=== PATIENT | female | born 1990 | race American Indian/Alaskan Native ===

== ENCOUNTER 2018-07-15 09:39 | Inpatient (IN) | payer SELFPAY ==
--- NOTE | 2018-07-15 12:23 | Emergency Department Report ---
ED General Adult HPI - General Chief complaint: Skin/Abscess/Foreign Body Stated complaint: POSSIBLE INFECTIONS Time Seen by Provider: 07/15/18 12:08 Source: patient, EMS Mode of arrival: Ambulatory Limitations: No Limitations - History of Present Illness Initial comments: This is a 27-year-old female that states that she had drainage of an abscess of her left breast four months ago in [facility]. She stated that she noted some green drainage from the same I&D site last night. She denies fever or chills. She states that she has had some weight loss but she believes this is due to her hypothyroidism. Patient initially told me that she was taking her thyroid medicine. Later she told the nurse she was never prescribed thyroid medicine. Again when I asked her for clarification she just admitted that she is frankly noncompliant with previously prescribed thyroid medication. -: hour(s) (related to drainage) - Related Data Allergies Allergy/AdvReac Type Severity Reaction Status Date / Time Penicillins Allergy Unknown Verified 07/15/18 10:06 ED Review of Systems ROS: Stated complaint: POSSIBLE INFECTIONS Other details as noted in HPI Constitutional: denies: chills, fever Eyes: denies: eye pain, eye discharge, vision change ENT: denies: ear pain, throat pain Respiratory: denies: cough, shortness of breath, wheezing Cardiovascular: denies: chest pain, palpitations Endocrine: see HPI, unexplained weight loss Gastrointestinal: denies: abdominal pain, nausea, diarrhea Genitourinary: denies: urgency, dysuria, discharge Musculoskeletal: denies: back pain, joint swelling, arthralgia Skin: as per HPI, lesions. denies: rash Neurological: denies: headache, weakness, paresthesias Psychiatric: denies: anxiety, depression Hematological/Lymphatic: denies: easy bleeding, easy bruising ED Past Medical Hx - Past Medical History Previous Medical History?: Yes Hx Hypertension: Yes Additional medical history: hyperthyroidism - Surgical History Past Surgical History?: Yes - Social History Smoking Status: Current Every Day Smoker Substance Use Type: Marijuana ED Physical Exam - General Limitations: No Limitations General appearance: alert, in no apparent distress - Head Head exam: Present: atraumatic, normocephalic - Eye Eye exam: Present: normal appearance, periorbital swelling - ENT ENT exam: Present: mucous membranes moist - Neck Neck exam: Present: normal inspection. Absent: tenderness, meningismus - Respiratory Respiratory exam: Present: normal lung sounds bilaterally. Absent: respiratory distress - Cardiovascular Cardiovascular Exam: Present: normal rhythm, tachycardia. Absent: systolic murmur, diastolic murmur, rubs, gallop - GI/Abdominal GI/Abdominal exam: Present: soft, normal bowel sounds. Absent: distended, tenderness, guarding, rebound, rigid - Extremities Exam Extremities exam: Present: normal inspection - Back Exam Back exam: Present: normal inspection - Neurological Exam Neurological exam: Present: alert, oriented X3, CN II-XII intact. Absent: motor sensory deficit - Psychiatric Psychiatric exam: Present: normal affect, normal mood - Skin Skin exam: Present: warm, dry, intact, normal color. Absent: rash - Other Other exam information: Left breast has a periareolar ulcer. There is some mass effect. There is some erythema. I do not note any drainage or purulence. ED Course Vital Signs 07/15/18 07/15/18 07/15/18 09:39 11:03 11:30 Temperature 98.5 F Pulse Rate 116 H Respiratory 18 Rate Blood Pressure 136/98 138/99 138/79 O2 Sat by Pulse 100 98 100 Oximetry 07/15/18 07/15/18 07/15/18 12:00 12:30 13:00 Temperature Pulse Rate Respiratory Rate Blood Pressure 144/72 138/79 132/76 O2 Sat by Pulse 99 99 100 Oximetry 07/15/18 07/15/18 07/15/18 13:30 14:00 14:30 Temperature Pulse Rate Respiratory Rate Blood Pressure 132/76 132/76 132/79 O2 Sat by Pulse 100 96 99 Oximetry 07/15/18 14:41 Temperature 98.2 F Pulse Rate Respiratory Rate Blood Pressure O2 Sat by Pulse Oximetry - Reevaluation(s) Reevaluation #1: She is noted to be significantly tachycardic. She was given PTU, Lugol solution and started on IV propranolol. She is substantially thyrotoxic with a T4 off the scale and a TSH essentially 0. She is referred to Dr. Quiroz for admission to the hospitalist service in stable condition. I also concerned that breast cancer needs to be ruled out because she has chronic breast tract/ulcer/mass. 07/15/18 16:00 ED Medical Decision Making - Lab Data Result diagrams: 07/15/18 12:48 07/15/18 12:48 Critical Care Time: Yes Critical care time in (mins) excluding proc time.: 60 Critical care attestation.: If time is entered above; I have spent that time in minutes in the direct care of this critically ill patient, excluding procedure time. ED Disposition Clinical Impression: Breast mass, Breast infection in female Thyrotoxicosis Qualifiers: Thyrotoxicosis type: unspecified thyrotoxicosis type Thyrotoxic crisis or storm presence: with thyrotoxic crisis or storm Qualified Code(s): E05.91 - Thyrotoxicosis, unspecified with thyrotoxic crisis or storm Disposition: 09 OP ADMIT IP TO THIS HOSP Is pt being admited?: Yes Does the pt Need Aspirin: Yes Condition: Stable Referrals: PRIMARY CARE,MD [Primary Care Provider] - 3-5 Days Time of Disposition: 16:02
[2018-07-15] MEDS ORDERED: NACL 0.9% 1000 ML 1,000 ML IV ONE (12:36)
[2018-07-15 13:12] LABS: Hematocrit 32.1 % (30.3-42.9); Hemoglobin 10.1 gm/dl (10.1-14.3); Mean Corpuscular HGB Conc 32 % (30-34); Red Blood Count 5.33 M/mm3 (3.65-5.03); Red Cell Distribution Width 17.2 % (13.2-15.2)
[2018-07-15 13:18] LABS: Mean Corpuscular Volume 60 fl (79-97)
[2018-07-15 13:23] LABS: INR 1.02 (0.87-1.13); Partial Thromboplastin Time 30.9 Sec. (24.2-36.6)
[2018-07-15 13:38] LABS: Creatine Kinase MB 2.8 ng/mL (0.0-4.0)
[2018-07-15 13:41] LABS: Alanine Aminotransferase 28 units/L (7-56); Albumin 3.5 g/dL (3.9-5); BUN/Creatinine Ratio 70; Blood Urea Nitrogen 14 mg/dL (7-17); Calcium 8.7 mg/dL (8.4-10.2); Hemolysis Index 4
[2018-07-15 14:00] LABS: Bilirubin,Direct < 0.2 mg/dL (0-0.2)
[2018-07-15] MEDS ORDERED: PROPYLTHIOURACIL PO ONE (14:34)
[2018-07-15] MEDS ORDERED: INDERAL IV ONE (14:36)
[2018-07-15 14:41] LABS: Free T4 (Free Thyroxine) > 7.77 ng/dL (0.76-1.46)
--- NOTE | 2018-07-15 14:46 | History and Physical Report ---
History of Present Illness Chief complaint: green stuff came out of my left breast History of present illness: 27 YO Female with Hyperthyroidism, HTN, Nicotine Dependence, Medication Noncompliance presents to ED for evaluation. Pt states that she experienced green drainage from her left breast overnight. Pt also acknowledges medication noncompliance. Pt acknowledges undetermined amount of weight loss over the past 2 months. EMS notified and patient subsequently transported to [facility] for further care and evaluation. Pt seen and evaluated in ED and found to have Thyrotoxicosis, and left Breast Cellulitis. Pt admitted to medical floor. Pt denies fever, chills, CP, Palpitations, NVD, Trauma, BRBPR, productive cough, or recent ill contacts. Past History Past Medical History: hyperthyroidism, hypertension Past Surgical History: Other (Breast I&D, ) Social history: single, smoking Family history: no significant family history (reviewed) Medications and Allergies Allergies Allergy/AdvReac Type Severity Reaction Status Date / Time Penicillins Allergy Unknown Verified 07/15/18 10:06 Active Meds: Active Medications Sodium Chloride (Nacl 0.9% 1000 Ml) 1,000 mls @ 125 mls/hr IV ONCE ONE Stop: 07/15/18 20:35 Last Admin: 07/15/18 13:08 Dose: 125 mls/hr Documented by: Iodine/Potassium Iodide (Lugol's Solution 5%) 1 ml PO ONCE ONE Stop: 07/15/18 17:01 Review of Systems Constitutional: weight loss, no weight gain, no fever, no chills Ears, nose, mouth and throat: no ear pain, no ear discharge, no tinnitis, no decreased hearing, no nose pain Breasts: other (Left breast drainage), no change in shape, no swelling, no mass Cardiovascular: no chest pain, no orthopnea, no palpitations, no rapid/irregular heart beat, no edema Respiratory: no cough, no cough with sputum, no excessive sputum, no hemoptysis Gastrointestinal: no nausea, no vomiting, no diarrhea, no constipation Genitourinary Female: no pelvic pain, no flank pain, no menorrhagia, no dysuria, no urinary frequency, no urgency Rectal: no pain, no incontinence, no bleeding Musculoskeletal: no neck stiffness, no neck pain, no shooting arm pain, no arm numbness/tingling, no low back pain Integumentary: no rash, no pruritis, no redness, no sores, no jaundice Neurological: no paralysis, no weakness, no parathesias, no numbness, no tingling, no seizures, no syncope, no tremors Psychiatric: no anxiety, no change in sleep habits, no sleep disturbances, no insomnia, no hypersomnia, no change in appetite Endocrine: no cold intolerance, no heat intolerance, no excessive thirst Hematologic/Lymphatic: no easy bruising, no easy bleeding, no lymphadenopathy, no lymphedema Allergic/Immunologic: no urticaria, no allergic rhinitis, no wheezing, no persistent infections, no anaphylaxis, no angioedema Exam - Constitutional Vitals: Temp Pulse Resp BP Pulse Ox 98.2 F 116 H 18 132/79 99 07/15/18 14:41 07/15/18 09:39 07/15/18 09:39 07/15/18 14:30 07/15/18 14:30 General appearance: Present: mild distress - EENT Eyes: Present: PERRL, exopthalmos ENT: hearing intact, clear oral mucosa - Neck Neck: Present: supple, normal ROM - Respiratory Respiratory effort: normal Respiratory: bilateral: CTA - Cardiovascular Heart Sounds: Present: S1 & S2. Absent: rub, click - Extremities Extremities: pulses symmetrical, No edema Peripheral Pulses: within normal limits - Abdominal General gastrointestinal: Present: soft, non-tender, non-distended, normal bowel sounds Female genitourinary: Present: normal - Integumentary Integumentary: Present: clear, warm, dry - Musculoskeletal Musculoskeletal: gait normal, strength equal bilaterally - Psychiatric Psychiatric: appropriate mood/affect, intact judgment & insight - Neurologic Neurologic: CNII-XII intact, moves all extremities Results - Labs CBC & Chem 7: 07/16/18 06:16 07/15/18 12:48 Labs: Abnormal lab results 07/15/18 07/15/18 07/15/18 Range/Units 12:48 12:48 12:48 RBC 5.33 H (3.65-5.03) M/mm3 MCV 60 L (79-97) fl MCH 19 L (28-32) pg RDW 17.2 H (13.2-15.2) % Sodium 134 L (137-145) mmol/L Potassium 3.5 L (3.6-5.0) mmol/L Carbon Dioxide 20 L (22-30) mmol/L Creatinine 0.2 L (0.7-1.2) mg/dL Glucose 103 H (65-100) mg/dL Magnesium 1.60 L (1.7-2.3) mg/dL AST 41 H (5-40) units/L Alkaline Phosphatase 236 H (35-129) units/L CK-MB (CK-2) Rel Index 5.2 H (0-4) Albumin 3.5 L (3.9-5) g/dL TSH < 0.005 L (0.270-4.200) mlU/mL Free T4 > 7.77 H (0.76-1.46) ng/dL Assessment and Plan - Patient Problems (1) Cellulitis of left breast Current Visit: Yes Status: Acute Plan to address problem: Iv antibiotic therapy, CT chest to assess for abscess, supportive care, CBC, CMP (2) Nicotine dependence unspecified, with withdrawal Current Visit: Yes Status: Acute Qualifiers: Nicotine product type: cigarettes Qualified Code(s): F17.213 - Nicotine dependence, cigarettes, with withdrawal Plan to address problem: Pt counseled, smoking cessation, supportive care. (3) Thyrotoxicosis Current Visit: Yes Status: Acute Qualifiers: Thyrotoxicosis type: unspecified thyrotoxicosis type Thyrotoxic crisis or storm presence: with thyrotoxic crisis or storm Qualified Code(s): E05.91 - Thyrotoxicosis, unspecified with thyrotoxic crisis or storm Plan to address problem: PTU, and Inderal therapy, monitor heart rate, supportive care, outpatient endocrinology F/U care. (4) Acidosis Current Visit: Yes Status: Acute Plan to address problem: IV bicarbonate therapy, supportive care, repeat bmp (5) DVT prophylaxis Current Visit: Yes Status: Acute Plan to address problem: SCD to BLE while in bed.
[2018-07-15 14:48] LABS: Total Cells Counted 100
[2018-07-15 14:49] LABS: Anisocytosis 2+; Basophils % (Manual) 0 % (0.0-1.8); Hypochromasia 1+
[2018-07-15 14:53] LABS: Ovalocytes 1+; Platelet Estimate Consistent w Auto; Poikilocytosis 1+; Schistocytes Rare; Target Cells Few
[2018-07-15 14:54] LABS: Mean Platelet Volume 9.2 fl (6-12); Platelet Count 120 K/mm3 (140-440)
[2018-07-15] MEDS ORDERED: VANCOMYCIN PHARMACY TO DOSE IV SCH (15:00)
--- NOTE | 2018-07-15 15:20 | XRay Report ---
FINAL REPORT EXAM: XR CHEST 1V AP HISTORY: hypertension TECHNIQUE: Frontal portable examination of the chest PRIORS: None FINDINGS: There is no visible pulmonary consolidation, pleural effusion, or pneumothorax. Cardiac silhouette size is at the upper limits of normal without vascular congestion. No visible acute displaced fracture in the regional skeleton. IMPRESSION: No acute cardiopulmonary disease in the visualized chest
[2018-07-15] MEDS ORDERED: VANCOMYCIN 1,250 MG in NACL 0.9% 250ML 250 ML IV ONE (16:00)
--- NOTE | 2018-07-15 16:52 | Cat Scan Report ---
FINAL REPORT EXAM: CT CHEST W CON HISTORY: left breast abscess TECHNIQUE: CT examination of the chest after IV contrast PRIORS: One-view chest 07/15/2018 FINDINGS: Visible portion of thyroid gland appears enlarged diffusely and bilaterally. This is nonspecific. Nonspecific tiny air bubble in left breast subareolar region. No CT evidence of associated fluid. Normal cardiac size without pericardial effusion. Intact normal caliber thoracic aorta. Normal-appear ing esophagus. No hilar mass. Nonspecific slight soft tissue prominence is noted in the anterior mediastinum. This may reflect remn ant thymic tissue. No acute fracture. No pneumothorax or pleural effusion. No focal pulmonary consolidation. No evidence of lung mass or nodule. IMPRESSION: Left breast subareolar tiny air bubble without CT evidence of associated fluid collection Diffusely enlarged thyroid gland Nonspecific slight soft tissue prominence in the anterior mediastinum may reflect remnant thymic tiss ue.
[2018-07-15] MEDS ORDERED: LUGOL'S SOLUTION 5% PO ONE ×2 (17:00)
[2018-07-15 17:18] LABS: Bilirubin,Urine NEG (Negative); Blood,Urine NEG (Negative); Color,Urine Yellow (Yellow); Protein,Urine <15 mg/dL mg/dL (Negative)
[2018-07-15 17:27] LABS: Amphetamine Screen,Urine PRESUMPTIVE NEGATIVE; Benzodiazepines Screen,Urine PRESUMPTIVE NEGATIVE; Cocaine Screen,Urine PRESUMPTIVE NEGATIVE; Methadone Screen,Urine PRESUMPTIVE NEGATIVE; Opiate Screen,Urine PRESUMPTIVE NEGATIVE
[2018-07-15 17:39] LABS: Cannabinoid Screen,Urine PRESUMPTIVE POSITIVE
[2018-07-15] MEDS ORDERED: PERCOCET 5/325 PO PRN (18:07)
[2018-07-15] MEDS ORDERED: TYLENOL PO PRN (18:07)
[2018-07-15] MEDS ORDERED: PROVENTIL IH PRN (18:07)
[2018-07-15] MEDS ORDERED: ZOFRAN IV PRN (18:07)
[2018-07-15] MEDS ORDERED: SODIUM CHLORIDE FLUSH SYRINGE 10 ML IV PRN (18:07)
[2018-07-15] MEDS ORDERED: BENADRYL ONE (18:27)
[2018-07-15] MEDS ORDERED: BENADRYL IV ONE (18:30)
[2018-07-15] MEDS: VANCOMYCIN/NS 1 GM/250 ML 1 GM/250 ML BAG IV SCH ×3 (20:01→23:35)
[2018-07-15] MEDS: INDERAL PO SCH (22:38)
[2018-07-15] MEDS: SODIUM CHLORIDE FLUSH SYRINGE 10 ML IV SCH (22:38)
[2018-07-16 07:00] LABS: Hematocrit 27.8 % (30.3-42.9); Hemoglobin 8.9 gm/dl (10.1-14.3); Mean Corpuscular HGB Conc 32 % (30-34); Red Blood Count 4.64 M/mm3 (3.65-5.03); Red Cell Distribution Width 17.1 % (13.2-15.2)
[2018-07-16 07:06] LABS: Mean Corpuscular Volume 60 fl (79-97)
[2018-07-16] MEDS: PROPYLTHIOURACIL PO SCH ×2 (08:20→15:08)
[2018-07-16] MEDS: VANCOMYCIN/NS 1 GM/250 ML 1 GM/250 ML BAG IV SCH ×2 (08:20→15:08)
[2018-07-16 09:21] LABS: Basophils % (Manual) 0 % (0.0-1.8); Eosinophils % (Manual) 0 % (0.0-4.3); Total Cells Counted 100
[2018-07-16 09:22] LABS: Anisocytosis 2+; Helmet Cells Rare; Hypochromasia 2+; Ovalocytes 1+; Poikilocytosis 1+; Target Cells Few
[2018-07-16 09:23] LABS: Platelet Estimate Cons; Schistocytes Rare; Tear Drop Cells Rare
[2018-07-16] MEDS: INDERAL PO SCH (09:28)
[2018-07-16] MEDS: SODIUM CHLORIDE FLUSH SYRINGE 10 ML IV SCH (09:34)
[2018-07-16 09:36] LABS: Platelet Count 86 K/mm3 (140-440)
[2018-07-16 13:01] VITALS: BP 122/75
--- NOTE | 2018-07-16 16:32 | Discharge Summary ---
Providers - Providers Date of Admission: 07/15/18 18:07 Date of discharge: 07/16/18 Attending physician: ABELINO LAWSON Primary care physician: PATTERNMAKER BENCH Hospitalization Condition: Stable Hospital course: Patient was seen and examined. Follow-up on current diagnosis of draining left breast abscess. Overnight uneventful. Patient denies any chest pain, shortness breath, nausea/vomiting or severe headaches. Imaging, nursing note, chart, labs and old chart reviewed. Discussed with patient and mother Madi Zapata (@[phone], over the phone) Hospital coarse: Patient is a 27-year-old black woman with a known history of hypothyroidism but noncompliance with taking her medication, marijuana use and prior left breast abscess s/p drainage in [facility] who presents to [facility] ED with green drainage from the same I&D site of the left breast. -Left breast mastitis: D/W our Breast surgeon, will see in office on Tuesday, d/c home with Bactrim, warm towel compresses 4 times a day -Tobacco/Marijuana use: clinical counselor on stopping as this is the main culprit for the masititis. -Hyperthyroidism: patient just needs to be back on her medication. Disposition: DC-01 TO HOME OR SELFCARE Core Measure Documentation - Palliative Care Palliative Care/ Comfort Measures: Not Applicable - Core Measures Any of the following diagnoses?: none - VTE Discharge Requirements Deep Vein Thrombosis/Pulmonary Embolism Present on Admission: No Has pt received <5 days of overlap therapy or INR<2.0: No Anticoagulant overlap therapy prescribed at discharge: No Contraindication No Overlap Therapy order at DC: Not Indicated Exam - Physical Exam Narrative exam: Gen: thin, NAD, Awake, Alert, Orientated HEENT: NCAT, EOMI, PERRL, OP Clear Neck: supple, no adenopathy, +thyromegaly, no JVD CVS/Heart: Regular tachy, normal S1S2, pulses present bilaterally Chest/Lungs: CTA B, Symmetrical chest expansion, good air entry bilaterally GI/Abdomen: soft, NTND, good bowel sounds, no guarding or rebound /Bladder: no suprapubic tenderness, no CVA or paraspinal tenderness Breast (leather stitcher Fany RN): 3 o'clock arreolar area there is a ulcer and hard tender mass Extermity/Skin: no c/c/e, no obvious rash MSK: FROM x 4 Neuro: CN 2-12 grossly intact, no new focal deficits Psych: calm - Constitutional Vitals: Temp Pulse Resp BP Pulse Ox 98.4 F 94 H 14 122/75 97 07/16/18 12:24 07/16/18 12:24 07/16/18 12:24 07/16/18 12:24 07/16/18 12:24 Plan Activity: other (no strenous activity until cleared by Brim Pouncing Machine Operator) Diet: regular Additional Instructions: 1) see Dr. Yissel Lock, Breast Surgeon, [address], [place] [address], on Tuesday07/16/2018. (2) Warm compresses 4-6 times a day with a towel (3) Motrin for pain (4) See Dr. Cynthia Morton for Thyroid; [address], [place] [address], (5) Smoking is leading the breast problems, please stop smoking Follow up with: CYNTHIA MORTON MD [Staff Physician] - 7 Days YISSEL LOCK MD [Staff Physician] - 07/18/18 [facility] [Provider Group] - 7 Days Prescriptions: Ibuprofen [Motrin] 400 mg PO BID PRN #10 tablet PRN Reason: Pain , Severe (7-10) RX: Propranolol [Inderal] 20 mg PO Q12HR #60 tablet RX: Propylthiouracil 50 mg PO TID #90 tablet Sulfamethoxazole/Trimethoprim [Bactrim DS TAB] 1 each PO BID #28 tablet
== END 2018-07-16 17:40 | disposition home or self-care (01) | DRG 600 ==
LOC: ED 09:39 → 3A 18:07
PROVIDERS: ADMIT Internal Medicine; ATTEND Internal Medicine
DX: N61.1 Abscess of the breast and nipple (principal); E05.91 Thyrotoxicosis, unspecified with thyrotoxic crisis or storm; F17.213 Nicotine dependence, cigarettes, with withdrawal; E87.2 Acidosis; N61.0 Mastitis without abscess; N63.0 Unspecified lump in unspecified breast; I10 Essential (primary) hypertension; F12.90 Cannabis use, unspecified, uncomplicated; Z91.14 Patient's other noncompliance with medication regimen; Z88.0 Allergy status to penicillin
CPT/HCPCS: 36415; 71045; 71260; 80048; 80076; 80307; 81001; 82550; 82553; 83735; 84100; 84439; 84443; 84703; 85007; 85025; 85610; 85730; 93005; 93010; G0378; J1200; J1800; J3370; J7030; J7050; Q9967